=== PATIENT | female | born 1990 | race American Indian/Alaskan Native ===

== ENCOUNTER 2018-03-02 21:10 | Observation (INO) | payer BC ==
[2018-03-02] MEDS ORDERED: Nitrofurantoin Monohydrate/Macrocrystalline 100 MG Cap PO ONE (22:16)
[2018-03-02] MEDS ORDERED: Betamethasone Acetate/Betamethasone Sod Phosphate 30 MG/5 ML MDV IM ONE (22:19)
[2018-03-02] MEDS: Lactated Ringers 1,000 ML IV SCH (22:34)
[2018-03-02] MEDS: Terbutaline 1 MG/ML SDV SUBCUT ONE ×2 (22:46→23:35)
[2018-03-02] MEDS ORDERED: Clindamycin HCl 150 MG Cap PO ONE (23:21)
[2018-03-02] MEDS ORDERED: Sertraline 50 MG Tab PO ONE (23:21)
[2018-03-02] MEDS ORDERED: Montelukast 10 MG Tab PO ONE (23:22)
[2018-03-03] MEDS ORDERED: Terbutaline 1 MG/ML SDV SUBCUT ONE (02:32)
[2018-03-03] MEDS: Lactated Ringers 1,000 ML IV SCH ×3 (02:40→16:17)
[2018-03-03] MEDS: Nitrofurantoin Monohydrate/Macrocrystalline 100 MG Cap PO SCH ×2 (10:57→21:49)
--- NOTE | 2018-03-03 11:50 | PN ---
DATE: 03/03/2018 She was brought in for observation to Labor and Delivery last night on 03/02/2018. SUBJECTIVE: Please see my written history and physical from last night. The patient has been in Labor and Delivery for close observation. She is 27 weeks 4 days gestation with twin gestation, dichorionic diamniotic twins. She did report to us on Labor and Delivery last evening that she had been having quite a bit of lower abdominal cramping since about 6:00 p.m. in the evening. She does live up in the [facility] and had driven one hour or more to [place]. She has had IUI with Dr. Teodoro Robles in [place] and has also been followed by Dr. Canchola for this . She also saw Dr. Lara at our facility in [place] on this past and because of an increase in frequency of urination and because of an abnormal urinalysis, she was started on clindamycin for UTI. Subsequently, I see that her urine culture did not confirm true UTI. The patient has continued to have urinary frequency, however, and sometimes bladder discomfort. Denies any visible hematuria or dysuria as such. When she came to us last evening around 9:30 or 10 in the evening, she still was having increasing urinary frequency as mentioned above and reported the above-mentioned uterine cramping. The patient did have contractions sometimes occurring about every 4-5 minutes on the external monitor. The patient did receive IV and oral hydration last night and 2 injections of subcutaneous terbutaline, this did help somewhat. We did need another injection of terbutaline at 2:30 a.m. this morning. The patient's cervical exam last night was closed, but 80% effaced, and slightly softened. She otherwise has had a fairly stable night last night and has not gone on into labor at this time. She did receive an injection of betamethasone 12 mg IM about 10:30 or 11 last night. OBJECTIVE: Vital Signs: This morning are stable. heart tones are category 1 or appropriate for gestational age of 27 weeks 4 days. She is having just irritability on the external monitor and once in a while will have an occasional or rare uterine contraction. Extremities: This morning are negative. Careful and gentle repeat cervical examination by myself reveals the cervix to still be closed and 80% as discussed above. ASSESSMENT: High risk at 27 weeks 4 days gestation with threatened labor and urinary symptoms, although one of her recent urine cultures did not confirm UTI. Last night's urinalysis does look better than the one she had in the clinic 3 days earlier. The patient was given betamethasone last night. PLAN: We will continue with oral and IV hydration, although we will decrease her IV to 100 mL/h of LR. We will stop her clindamycin and because of her urinary symptoms, empirically continue to use an antibiotic in the form of Macrobid 100 mg p.o. b.i.d. Betamethasone will be given tonight at approximately 10:30 p.m. The patient will continue to stay here for further observation. Also tomorrow morning when ultrasound is available, we will obtain OB ultrasound for cervical length measurement and configuration. We also will thoroughly discuss her with Dr. Canchola in the relatively near future. The patient is quite stable at the present, but is very high risk for possible future delivery. I note that her vaginal wet mount was negative several days back on 02/28/2018. All of her questions have been answered. We did thoroughly discuss and review her clinical situation with the patient, her mother and her , Elly. Also I will thoroughly discuss her with Dr. Lara, who will likely be following her while I am out of town on Sunday and Sunday night, 03/04/2018. Obviously, if the patient was to show more threatening signs or symptoms of imminent labor, the patient will be expediently transferred to [place] by ambulance. The patient does not need transfer to [place] by ambulance at this moment, however. [facility] /[id number]
[2018-03-03] MEDS: Calcium Carbonate 500 MG Tab.Chew PO PRN ×3 (12:49→21:49)
[2018-03-03] MEDS ORDERED: Acetaminophen 325 MG Tab PO PRN (12:50)
[2018-03-03] MEDS ORDERED: Prenatal Multivitamin with Calcium/Folic Acid/Iron Tab PO SCH (21:00)
[2018-03-03] MEDS ORDERED: Sertraline 50 MG Tab PO ONE (22:00)
[2018-03-03] MEDS ORDERED: Montelukast 10 MG Tab PO ONE (22:00)
[2018-03-03] MEDS ORDERED: Betamethasone Acetate/Betamethasone Sod Phosphate 30 MG/5 ML MDV IM ONE (22:43)
[2018-03-03] MEDS ORDERED: Zolpidem 5 MG Tab PO PRN (22:52)
[2018-03-03] MEDS ORDERED: hydrOXYzine HCl 25 MG Tab PO ONE (22:56)
[2018-03-04] MEDS: Lactated Ringers 1,000 ML IV SCH (02:08)
[2018-03-04] MEDS: Nitrofurantoin Monohydrate/Macrocrystalline 100 MG Cap PO SCH (08:21)
--- NOTE | 2018-03-04 11:22 | US ---
CLINICAL HISTORY: 27-year-old high risk gravid female (twin gestation with labor), estimated date of delivery 29 May 2018. No previous pregnancies. Cervical length? INTERPRETATION: "Multiple gestations" reported by postpartum nurse. Limited exam lower uterine segment documents some "funneling" at the internal cervical os. Cervical canal measurement from internal to external os is 10.1 mm (1.0 cm). No fluid in the cervical canal.
[2018-03-04] MEDS ORDERED: Montelukast 10 MG Tab PO SCH (21:00)
[2018-03-04] MEDS ORDERED: Sertraline 50 MG Tab PO SCH (21:00)
== END 2018-03-04 09:25 | disposition home or self-care (01) ==
LOC: DL.OBCHECK 21:10 → DL.OB 23:00
PROVIDERS: ADMIT Obstetrics & Gynecology; ATTEND Obstetrics & Gynecology
DX: O99.89 Other specified diseases and conditions complicating pregnancy, childbirth and the puerperium (principal); J02.9 Acute pharyngitis, unspecified; Z3A.11 11 weeks gestation of pregnancy; Z87.891 Personal history of nicotine dependence
CPT/HCPCS: 76817; 81001; 87086; 96360; 96361; 96372; A9270; G0378; J0702; J3105; J7120